=== PATIENT | female | born 1990 | race Two or more races ===

== ENCOUNTER → 2025-01-25 | Outpatient (CLI) | payer OTHER | LOC: LAB 09:00 → LAB SHORT 09:00 | DX: R35.0 Frequency of micturition (principal) | CPT/HCPCS: 87086 ==

== ENCOUNTER → 2025-01-27 | Outpatient (CLI) | payer OTHER | LOC: LAB SHORT 08:00 → LAB 08:00 | DX: Z12.4 Encounter for screening for malignant neoplasm of cervix (principal) | CPT/HCPCS: 87624; G0145 ==